=== PATIENT | female | born 1990 | race African-American/Black ===

== ENCOUNTER 2023-01-23 18:35 | Emergency (ER) | payer SELFPAY ==
[2023-01-23 20:44] LABS: #Eosinphils 0.2 10x3/uL (0.0-0.5); #Monocytes 0.5 10x3/uL (0.0-1.1); %Basophils 0.4 % (0.0-2.0); %Eosinophils 2.7 % (0.0-6.0); %Lymphocytes 37.7 % (18.0-47.0); %Neutrophils 52.9 % (40.0-75.0); Hematocrit 34.5 % (34.9-44.5); Hemoglobin 11.5 g/dL (12.0-15.5); Mean Corpuscular HGB CONC 33.3 g/dL (32.0-36.0); Mean Corpuscular Hemoglobin 28.9 pg (27.0-33.0); Mean Corpuscular Volume 86.7 fl (81.6-98.3); Mean Platelet Volume 10.4 fl (7.4-10.4); Platelet Count 253 10x3/uL (150-450); Red Blood Cell (RBC) Count 3.98 10x6/uL (3.90-5.03); White Blood Cell (WBC) Count 7.5 10x3/uL (3.5-10.5)
== END 2023-01-23 22:29 | disposition home or self-care (01) ==
LOC: CSHERS 18:35
DX: O20.0 Threatened abortion (principal); Z3A.01 Less than 8 weeks gestation of pregnancy
CPT/HCPCS: 36415; 76856; 84702; 85025; 86900; 86901

== ENCOUNTER 2023-03-02 09:42 | Emergency (ER) | payer OTHER, SELFPAY | END 2023-03-02 11:50 | disposition home or self-care (01) | LOC: CSHERS 09:42 | DX: O03.4 Incomplete spontaneous abortion without complication (principal) | CPT/HCPCS: 99283 ==

== ENCOUNTER 2024-01-26 20:42 | Day surgery (SDC) | payer OTHER ==
[2024-01-26] MEDS ORDERED: hydrALAZINE 20 MG/ML VIAL SLOW IVP PRN (20:54)
[2024-01-26 21:13] VITALS: BMI 39.9
[2024-01-26 21:54] LABS: Bilirubin 1+ (Negative); Blood, Urine 25 (Negative); Clarity Slightly Cloudy (Clear); Glucose, Urine (Dipstick) Normal (Negative); Ketone, Urine 5 mg/dL (Negative); Leukocyte 25 (Negative); Nitrite Negative (Negative); Protein, Urine (Dipstick) 30 mg/dl (Neg-Trace)
[2024-01-26 22:24] LABS: Bacteria/HPF 1+ HPF (None Seen); CAUTI Indications for Culture Pregnancy; RBC/HPF 0-3 HPF (0-3); Squamous Epithelial 0-3 HPF (0-3)
[2024-01-26 22:25] LABS: Mucous/LPF 2+ LPF (<2+)
[2024-01-26 22:26] LABS: Urine Culture Reflex No No; Urine Culture Reflex Yes Yes
[2024-01-26] MEDS: Nitrofurantoin Monohyd/M-Cryst 100 MG CAP PO SCH (22:45)
== END 2024-01-27 00:55 | disposition home or self-care (01) ==
LOC: CSHLD/OP 20:42
PROVIDERS: ATTEND Family Medicine
DX: O99.891 Other specified diseases and conditions complicating pregnancy (principal); R10.30 Lower abdominal pain, unspecified; O09.43 Supervision of pregnancy with grand multiparity, third trimester; O99.213 Obesity complicating pregnancy, third trimester; O99.283 Endocrine, nutritional and metabolic diseases complicating pregnancy, third trimester; E03.9 Hypothyroidism, unspecified; O35.2XX0 Maternal care for (suspected) hereditary disease in fetus, not applicable or unspecified; O34.211 Maternal care for low transverse scar from previous cesarean delivery; Z90.49 Acquired absence of other specified parts of digestive tract; Z87.59 Personal history of other complications of pregnancy, childbirth and the puerperium; Z3A.34 34 weeks gestation of pregnancy
CPT/HCPCS: 36415; 76819; 81001; 87086; 99283

== ENCOUNTER 2024-02-01 18:31 | Day surgery (SDC) | payer OTHER ==
[2024-02-01 19:04] VITALS: BMI 39.9
[2024-02-01 20:06] LABS: Bilirubin Neg (Negative); Blood, Urine 50 (Negative); Clarity Clear (Clear); Glucose, Urine (Dipstick) Normal (Negative); Ketone, Urine Negative (Negative); Leukocyte 25 (Negative); Nitrite Negative (Negative); Protein, Urine (Dipstick) 30 mg/dl (Neg-Trace); pH, Urine 6.5 (5.0-9.0)
[2024-02-01 20:28] LABS: Bacteria/HPF 1+ HPF (None Seen); CAUTI Indications for Culture Pregnancy; Mucous/LPF Rare LPF (<2+); RBC/HPF 0-3 HPF (0-3); WBC/HPF 0-3 HPF (0-3)
[2024-02-01 20:30] LABS: Urine Culture Reflex No No; Urine Culture Reflex Yes Yes
[2024-02-01] MEDS: Lidocaine 1% PF 5 ML VIAL ONE (21:19)
[2024-02-01] MEDS: cefTRIAXone (ROCEPHIN) 1 GM VIAL IM SCH (21:19)
[2024-02-01 21:21] LABS: #Basophils 0.03 10x3/uL (0.0-0.2); #Eosinophils 0.05 10x3/uL (0.0-0.5); #Monocytes 0.73 10x3/uL (0.0-1.1); #Neutrophils 8.15 10x3/uL (1.5-8.4); %Basophils 0.3 % (0.0-2.0); %Eosinophils 0.4 % (0.0-6.0); %Lymphocytes 22.5 % (18.0-47.0); %Monocytes 6.3 % (0.0-10.0); Hematocrit 32.8 % (34.9-44.5); Hemoglobin 11.1 g/dL (12.0-15.5); Mean Corpuscular HGB CONC 33.8 g/dL (32.0-36.0); Mean Corpuscular Hemoglobin 29.8 pg (27.0-33.0); Mean Corpuscular Volume 88.2 fL (81.6-98.3); Platelet Count 228 10x3/uL (150-450); RBC Distribution Width 13.6 % (11.5-14.5); Red Blood Cell (RBC) Count 3.72 10x6/uL (3.90-5.03); White Blood Cell (WBC) Count 11.6 10x3/uL (3.5-10.5)
[2024-02-01 21:28] LABS: ALT (SGPT) 78 U/L (8-55); AST (SGOT) 65 U/L (5-34); Albumin 2.5 g/dL (3.5-5.0); Alkaline Phosphatase 140 U/L (40-110); Anion Gap 14 mmol/L (10-20); BUN (Urea Nitrogen) 9 mg/dL (7.0-18.7); Bilirubin, Total 0.6 mg/dL (0.2-1.2); Calc. Creatinine Clearance 209 mL/min (70-130); Calcium 9.4 mg/dL (7.8-10.44); Carbon Dioxide 17 mmol/L (22-29); Chloride 107 mmol/L (98-107); Estimated GFR 120; Globulin 4.2 g/dL (2.4-3.5); Glucose 80 mg/dL (70-105); Potassium 3.8 mmol/L (3.5-5.1); Protein, Total 6.7 g/dL (6.0-8.3); Sodium 134 mmol/L (136-145)
== END 2024-02-01 21:35 | disposition home or self-care (01) ==
LOC: CSHLD/OP 18:31
PROVIDERS: ATTEND Family Medicine
DX: O99.891 Other specified diseases and conditions complicating pregnancy (principal); R10.9 Unspecified abdominal pain; M54.50 Low back pain, unspecified; O34.211 Maternal care for low transverse scar from previous cesarean delivery; O99.213 Obesity complicating pregnancy, third trimester; O99.283 Endocrine, nutritional and metabolic diseases complicating pregnancy, third trimester; O35.2XX0 Maternal care for (suspected) hereditary disease in fetus, not applicable or unspecified; O09.213 Supervision of pregnancy with history of pre-term labor, third trimester; O09.43 Supervision of pregnancy with grand multiparity, third trimester; Z87.59 Personal history of other complications of pregnancy, childbirth and the puerperium; Z79.82 Long term (current) use of aspirin; Z79.899 Other long term (current) drug therapy; Z98.890 Other specified postprocedural states; Z90.49 Acquired absence of other specified parts of digestive tract; Z3A.35 35 weeks gestation of pregnancy
CPT/HCPCS: 36415; 80053; 81001; 82570; 84156; 85025; 87086; 96372; 99283; J0696

== ENCOUNTER 2024-02-06 10:03 | Inpatient (IN) | payer MEDICAID, SELFPAY ==
[2024-02-06] MEDS ORDERED: hydrALAZINE 20 MG/ML VIAL SLOW IVP PRN (11:27)
[2024-02-06] MEDS ORDERED: Ondansetron ODT 4 MG TAB PO PRN (11:35)
[2024-02-06] MEDS ORDERED: Ondansetron PF 4 MG/2 ML Vial IVP SCH (11:45)
[2024-02-06 12:09] LABS: #Basophils 0.02 10x3/uL (0.0-0.2); #Eosinophils 0.04 10x3/uL (0.0-0.5); #Monocytes 0.54 10x3/uL (0.0-1.1); #Neutrophils 8.47 10x3/uL (1.5-8.4); %Basophils 0.2 % (0.0-2.0); %Eosinophils 0.4 % (0.0-6.0); %Lymphocytes 18.7 % (18.0-47.0); %Monocytes 4.8 % (0.0-10.0); %Neutrophils 75.5 % (40.0-75.0); Hematocrit 34.9 % (34.9-44.5); Hemoglobin 11.6 g/dL (12.0-15.5); Mean Corpuscular HGB CONC 33.2 g/dL (32.0-36.0); Mean Corpuscular Hemoglobin 29.9 pg (27.0-33.0); Mean Corpuscular Volume 89.9 fL (81.6-98.3); Mean Platelet Volume 11.3 fL (7.4-10.4); Platelet Count 202 10x3/uL (150-450); RBC Distribution Width 13.5 % (11.5-14.5); Red Blood Cell (RBC) Count 3.88 10x6/uL (3.90-5.03); White Blood Cell (WBC) Count 11.2 10x3/uL (3.5-10.5)
[2024-02-06 12:16] LABS: ALT (SGPT) 130 U/L (8-55); AST (SGOT) 109 U/L (5-34); Albumin 2.6 g/dL (3.5-5.0); Alkaline Phosphatase 151 U/L (40-110); Anion Gap 15 mmol/L (10-20); BUN (Urea Nitrogen) 10 mg/dL (7.0-18.7); Bilirubin, Total 0.6 mg/dL (0.2-1.2); Calc. Creatinine Clearance 0 mL/min (70-130); Calcium 10.1 mg/dL (7.8-10.44); Carbon Dioxide 17 mmol/L (22-29); Chloride 107 mmol/L (98-107); Estimated GFR 109; Globulin 4.5 g/dL (2.4-3.5); Glucose 79 mg/dL (70-105); Potassium 3.9 mmol/L (3.5-5.1); Protein, Total 7.1 g/dL (6.0-8.3); Sodium 135 mmol/L (136-145)
[2024-02-06 13:20] LABS: Creatinine, Urine 226.3 mg/dL (47-110)
[2024-02-06] MEDS ORDERED: Calcium Gluc 4.6 MEQ/10 ML (100 MG/ML) SLOW IVP PRN (14:51)
[2024-02-06] MEDS ORDERED: Famotidine/PF 20 mg/2ml Vial SLOW IVP PRN (14:51)
[2024-02-06] MEDS ORDERED: Diphenoxylate HCl/Atropine Tablet PO PRN (14:51)
[2024-02-06] MEDS ORDERED: Ondansetron PF 4 MG/2 ML Vial IVP PRN ×3 (14:51→17:32)
[2024-02-06] MEDS ORDERED: Tranexamic Acid 1,000 MG/10 ML VIAL IVP PRN (14:51)
[2024-02-06] MEDS ORDERED: Carboprost 250 MCG/ML AMP IM PRN (14:51)
[2024-02-06] MEDS ORDERED: Bicitra 30 ML UDCUP PO PRN (14:51)
[2024-02-06] MEDS ORDERED: Lorazepam 2 MG/ML VIAL SLOW IVP PRN (14:51)
[2024-02-06] MEDS ORDERED: Misoprostol 200 MCG TAB PR PRN (14:51)
[2024-02-06] MEDS ORDERED: Oxytocin 30 units/NS 500 ML 500 ML IV SCH (15:00)
[2024-02-06] MEDS ORDERED: CEFAZOLIN 2 GM in Sodium Chloride 0.9% 100 ML IVPB SCH (15:00)
[2024-02-06 16:12] LABS: Syphilis Antibody Nonreactive (Nonreactive); Syphilis Antibody Index 0.07 S/CO (<1.00 Non-Reactive)
[2024-02-06 16:13] LABS: HBsAg Index 0.17 S/CO (0-0.99); Hep B Surf Ag - L&D Non-Reactive S/CO (NonReactive)
[2024-02-06] MEDS ORDERED: Phenylephrine 40 MG/NS 250 ML 250 ML ONE (16:22)
[2024-02-06] MEDS ORDERED: Oxytocin 10 UNITS/ML VIAL ONE ×2 (16:22→17:04)
[2024-02-06] MEDS ORDERED: ePHEDrine Sulfate 50 MG/10 ML VIAL ONE ×2 (16:23→17:24)
[2024-02-06] MEDS ORDERED: Morphine PF 10 MG/10 ML VIAL ONE (16:23)
[2024-02-06] MEDS ORDERED: fentaNYL 50 mcg/mL 1 mL Vial ONE (16:23)
[2024-02-06] MEDS ORDERED: Famotidine/PF 20 mg/2ml Vial ONE (16:30)
[2024-02-06] MEDS ORDERED: Hepatitis B Vaccine 10 MCG/0.5 ML SYR ONE (17:26)
[2024-02-06] MEDS ORDERED: Phytonadione Neonatal 1 MG/0.5 ML AMP ONE (17:26)
[2024-02-06] MEDS ORDERED: Erythromycin Base 0.5% Oint 1 GM TUBE ONE (17:26)
[2024-02-06] MEDS ORDERED: fentaNYL 50 mcg/mL 1 mL Vial SLOW IVP PRN (17:32)
[2024-02-06] MEDS ORDERED: HYDROmorphone 0.5 MG/0.5 ML SYRINGE SLOW IVP PRN (17:32)
[2024-02-06] MEDS ORDERED: Promethazine HCl 25 MG/ML VIAL IM PRN (17:32)
[2024-02-06] MEDS ORDERED: Naloxone HCl 0.4 mg/ml Vial IVP PRN ×2 (17:32)
[2024-02-06] MEDS ORDERED: Naloxone HCl 0.4 mg/ml Vial IV PRN (17:32)
[2024-02-06] MEDS ORDERED: diphenhydrAMINE 50 MG/ML VIAL IVP PRN (17:32)
[2024-02-06] MEDS ORDERED: Meperidine HCl/PF 25 MG (1 mL) VIAL SLOW IVP PRN (17:32)
[2024-02-06] MEDS ORDERED: Labetalol HCl 100 MG/20 ML VIAL SLOW IVP PRN ×2 (17:41)
[2024-02-06] MEDS ORDERED: Boostrix 0.5 ML (Tdap) VIAL (>/=7 yrs of age) IM ONE (17:42)
[2024-02-06] MEDS ORDERED: Communication Order-Pharmacy FS SCH (17:45)
[2024-02-06] MEDS ORDERED: Acetaminophen 325 MG TAB PO SCH (17:45)
[2024-02-06] MEDS: Promethazine HCl 25 MG/ML VIAL IM PRN (18:13)
[2024-02-06 18:30] VITALS: BMI 39.9
[2024-02-06] MEDS: Lactated Ringer's 500 ML IV SCH (18:52)
[2024-02-06] MEDS: Ketorolac Tromethamine 30 MG (1 mL) VIAL ONE (18:52)
[2024-02-06] MEDS: Ondansetron PF 4 MG/2 ML Vial ONE (18:55)
[2024-02-06] MEDS: Magnesium Sulfate 20 gm/500 ml 20 GM/500 ML BAG IVPB SCH (19:07)
[2024-02-06 19:28] LABS: Hep B Surf Ag Non-Reactive S/CO (NonReactive)
[2024-02-06] MEDS: Moisturizing Cream (Eucerin) 113 GM JAR TOP PRN (21:21)
[2024-02-07] MEDS: Ketorolac Tromethamine 30 MG (1 mL) VIAL IVP PRN (00:06)
[2024-02-07 01:01] LABS: Hep A IgM AB NONREACTIVE (NonReactive); Hep B Core IgM Index 0.14 S/CO (0-0.79); Hep C IgG Ab NONREACTIVE S/CO (NonReactive); Hep C Index 0.07 S/CO (0-0.79); Hepatitis B Core IgM Abs NONREACTIVE S/CO (NonReactive)
[2024-02-07 02:08] LABS: HBsAg Index 0.26 S/CO (0-0.99)
[2024-02-07 04:50] LABS: Hematocrit 31.7 % (34.9-44.5); Hemoglobin 10.8 g/dL (12.0-15.5); Mean Corpuscular HGB CONC 34.1 g/dL (32.0-36.0); Mean Corpuscular Hemoglobin 30.3 pg (27.0-33.0); Mean Corpuscular Volume 88.8 fL (81.6-98.3); Mean Platelet Volume 11.6 fL (7.4-10.4); Platelet Count 204 10x3/uL (150-450); RBC Distribution Width 13.3 % (11.5-14.5); Red Blood Cell (RBC) Count 3.57 10x6/uL (3.90-5.03)
[2024-02-07] MEDS ORDERED: HYDROcodone/Acetaminophen 5/325 mg Tablet PO PRN (05:45)
[2024-02-07 09:37] LABS: ALT (SGPT) 147 U/L (8-55); AST (SGOT) 135 U/L (5-34); Albumin 2.4 g/dL (3.5-5.0); Alkaline Phosphatase 131 U/L (40-110); Anion Gap 14 mmol/L (10-20); BUN (Urea Nitrogen) 8 mg/dL (7.0-18.7); Bilirubin, Total 0.8 mg/dL (0.2-1.2); Calc. Creatinine Clearance 222 mL/min (70-130); Calcium 7.8 mg/dL (7.8-10.44); Carbon Dioxide 18 mmol/L (22-29); Chloride 104 mmol/L (98-107); Estimated GFR 122; Globulin 3.2 g/dL (2.4-3.5); Glucose 74 mg/dL (70-105); Potassium 4.2 mmol/L (3.5-5.1); Protein, Total 5.6 g/dL (6.0-8.3); Sodium 132 mmol/L (136-145)
[2024-02-07] MEDS: Ferrous Sulfate 325 MG TAB PO SCH (10:02)
[2024-02-07] MEDS: Docusate 100 MG CAP PO SCH (10:02)
[2024-02-07] MEDS: traMADol HCl 50 MG TAB PO PRN (15:16)
[2024-02-08] MEDS: Ibuprofen 800 MG TAB PO SCH (05:07)
[2024-02-08 05:38] LABS: ALT (SGPT) 132 U/L (8-55); AST (SGOT) 109 U/L (5-34); Albumin 2.2 g/dL (3.5-5.0); Alkaline Phosphatase 109 U/L (40-110); Anion Gap 12 mmol/L (10-20); BUN (Urea Nitrogen) 11 mg/dL (7.0-18.7); Bilirubin, Total 0.4 mg/dL (0.2-1.2); Calc. Creatinine Clearance 184 mL/min (70-130); Calcium 7.9 mg/dL (7.8-10.44); Carbon Dioxide 21 mmol/L (22-29); Chloride 107 mmol/L (98-107); Estimated GFR 107; Globulin 3.7 g/dL (2.4-3.5); Glucose 110 mg/dL (70-105); Potassium 3.6 mmol/L (3.5-5.1); Protein, Total 5.9 g/dL (6.0-8.3); Sodium 136 mmol/L (136-145)
[2024-02-08] MEDS: Simethicone Chewable 80 MG TAB PO PRN (08:29)
[2024-02-09 12:18] VITALS: BP 137/76; TEMP 98.2
== END 2024-02-09 16:35 | disposition home or self-care (01) | DRG 788 ==
LOC: CSHLD/OP 10:03 → CSHLD 14:10 → CSHPP 02-07 19:45
PROVIDERS: ADMIT Family Medicine; ATTEND Family Medicine
PROC: 10D00Z1 Extraction of Products of Conception, Low, Open Approach (ICD-10-PCS; principal; 2024-02-06)
DX: O14.24 HELLP syndrome, complicating childbirth (principal); O76 Abnormality in fetal heart rate and rhythm complicating labor and delivery; O99.214 Obesity complicating childbirth; E66.9 Obesity, unspecified; O99.284 Endocrine, nutritional and metabolic diseases complicating childbirth; E03.8 Other specified hypothyroidism; O34.211 Maternal care for low transverse scar from previous cesarean delivery; Z37.0 Single live birth; Z87.440 Personal history of urinary (tract) infections; Z3A.36 36 weeks gestation of pregnancy; Z79.899 Other long term (current) drug therapy; Z79.82 Long term (current) use of aspirin; Z90.49 Acquired absence of other specified parts of digestive tract; Z14.8 Genetic carrier of other disease
CPT/HCPCS: 36415; 51702; 80053; 80074; 82570; 84156; 85025; 85027; 86780; 86850; 86900; 86901; 87340; 88307; 99285; J1885; J2274; J2405; J2550; J2590; J3010; J3475; J3490

== ENCOUNTER 2024-02-15 09:31 | Emergency (ER) | payer MEDICAID, OTHER, SELFPAY ==
[2024-02-15] MEDS ORDERED: Ibuprofen 800 MG TAB ONE (10:59)
== END 2024-02-15 11:57 | disposition home or self-care (01) ==
LOC: CSHERS 09:31
DX: Z48.817 Encounter for surgical aftercare following surgery on the skin and subcutaneous tissue (principal); G89.18 Other acute postprocedural pain
CPT/HCPCS: 99283